=== PATIENT | male | born 1965 | race Caucasian/White ===

== ENCOUNTER 2021-01-27 13:18 | Emergency (ER) | payer SELFPAY ==
[~2021-01-27] VITALS: Ht 180.3 cm; Wt 140.6 kg
[2021-01-27 13:33] VITALS: BP 100/86
[2021-01-27] MEDS ORDERED: LORA-258 PO (13:39)
--- NOTE | 2021-01-27 13:42 | NUR ---
Patient discharged to home in stable condition. Written and verbal after care instructions given. Patient verbalizes understanding of instruction.
== END 2021-01-27 13:43 | disposition home or self-care (01) ==
LOC: ER 13:25
DX: I10 Essential (primary) hypertension (principal); F41.9 Anxiety disorder, unspecified